=== PATIENT | female | born 1965 | race Caucasian/White ===

== ENCOUNTER 2022-06-21 07:34 | Emergency (ER) | payer BC ==
[2022-06-21] MEDS ORDERED: Ketorolac Tromethamine 30 MG/ML VIAL ONE (09:18)
== END 2022-06-21 09:27 | disposition home or self-care (01) ==
LOC: CSHERS 07:34
DX: M16.12 Unilateral primary osteoarthritis, left hip (principal); M41.86 Other forms of scoliosis, lumbar region
CPT/HCPCS: 72100; 72170; 96372; J1885